=== PATIENT | male | born 1980 | race Two or more races ===

== ENCOUNTER 2023-07-09 09:55 | Emergency (ER) | payer MEDICAID, OTHER ==
[~2023-07-09] VITALS: Ht 177.8 cm; Wt 104.8 kg
[2023-07-09 10:26] VITALS: BP 130/90; PULSE 87; RESP 16; TEMP 97.6; O2SAT 95
[2023-07-09] MEDS ORDERED: IBUP-1456 PO (10:41)
[2023-07-09] MEDS ORDERED: CEPH500C PO (10:41)
[2023-07-09] MEDS ORDERED: cefTRIAXone SOD 1,000 MG VL IM ONE (10:45)
== END 2023-07-09 11:05 | disposition home or self-care (01) ==
LOC: ER 09:55
DX: S50.362A Insect bite (nonvenomous) of left elbow, initial encounter (principal); Z79.1 Long term (current) use of non-steroidal anti-inflammatories (NSAID); Z79.899 Other long term (current) drug therapy; W57.XXXA Bitten or stung by nonvenomous insect and other nonvenomous arthropods, initial encounter; Y93.89 Activity, other specified; Y92.89 Other specified places as the place of occurrence of the external cause; Y99.8 Other external cause status
CPT/HCPCS: 96372; 99283; J0696